=== PATIENT | female | born 1990 | race Caucasian/White ===

== ENCOUNTER 2022-02-22 08:43 | Emergency (ER) | payer BC, MEDICAID ==
[~2022-02-22] VITALS: Ht 162.6 cm; Wt 86.2 kg
[2022-02-22 08:52] VITALS: BP 112/79
--- NOTE | 2022-02-22 09:12 | NUR ---
31 Y/O F BIB SELF C/O COUGH, BODY ACHES, N/V, WHEEZING, SOB, CONGESTION FOR THE PAST 4 DAYS. PT HAS BEEN TAKING OVER THE COUNTER MEDICATION DAYQUIL AT HOME AND TESTED NEGATIVE WITH AT HOME TEST. NKA OR PMH
--- NOTE | 2022-02-22 09:19 | NUR ---
31/F PRESENTS TO ED WITH C/O PRODUCTIVE COUGH, BODY ACHES AND NAUSEA/VOMITING X4 DAYS. PATIENT REPORTS SHE HAS BEEN TAKING DAYQUIL WITH NO RELIEF OF SYMPTOMS. STATING SHE HAD A NEGATIVE AT HOME COVID TEST. PATIENT DENIES CHEST PAIN, ABD PAIN, SOB OR RECENT FEVERS.
--- NOTE | 2022-02-22 10:00 | NUR ---
DR BARNETT AT BEDSIDE.
--- NOTE | 2022-02-22 10:22 | NUR ---
ELVIS AND INFLUENZA A&B SWABED AND WALKED TO THE LAB.
[2022-02-22] MEDS ORDERED: tessalon PO (10:26)
--- NOTE | 2022-02-22 10:29 | NUR ---
Patient discharged with v/s stable. Written and verbal after care instructions given and explained. Patient alert, oriented and verbalized understanding of instructions. Ambulatory with steady gait. All questions addressed prior to discharge. ID band removed. Patient advised to follow up with PMD. Rx TESSALON of given. Opportunity to ask questions provided and answered.
--- NOTE | 2022-02-22 10:48 | NUR ---
The patient's care was reviewed and supervised by Unique Prado RN.
== END 2022-02-22 10:29 | disposition home or self-care (01) ==
LOC: MED 08:43
DX: B34.9 Viral infection, unspecified (principal); Z20.822 Contact with and (suspected) exposure to COVID-19
CPT/HCPCS: 99283